=== PATIENT | female | born 1955 | race Caucasian/White ===

== ENCOUNTER → 2016-06-07 | Outpatient (CLI) | payer BC | LOC: MAMO 05-26 13:00 | DX: Z12.31 Encounter for screening mammogram for malignant neoplasm of breast (principal); Z98.890 Other specified postprocedural states | CPT/HCPCS: G0202 ==

== ENCOUNTER 2021-02-23 22:12 | Emergency (ER) | payer BC ==
[~2021-02-23] VITALS: Ht 152.4 cm; Wt 81.6 kg
[2021-02-23 23:27] LABS: HEMOGLOBIN 14.2 gm/dl (12.3-15.3); RED BLOOD COUNT 4.42 M/UL (4.00-5.10); WHITE BLOOD COUNT 14.8 K/UL (4.5-11.0)
== END 2021-02-24 05:13 | disposition home or self-care (01) ==
LOC: ER1 22:12
PROVIDERS: Physician Assistant Medical
DX: U07.1 COVID-19 (principal); J12.82 Pneumonia due to coronavirus disease 2019; Z23 Encounter for immunization; R74.02 Elevation of levels of lactic acid dehydrogenase [LDH]; R73.9 Hyperglycemia, unspecified; I51.9 Heart disease, unspecified
CPT/HCPCS: 36415; 36600; 71045; 80053; 81001; 82550; 82553; 82803; 83605; 83690; 83874; 84484; 85025; 86140; 87040; 93005; 96374; 99284; J0696; M0243; U0002

== ENCOUNTER 2021-02-26 16:14 | Inpatient (IN) | payer BC ==
[~2021-02-26] VITALS: Ht 152.4 cm; Wt 81.6 kg
[2021-02-26 16:50] LABS: HEMOGLOBIN 12.8 gm/dl (12.3-15.3)
[2021-02-26 17:00] LABS: RED BLOOD COUNT 3.97 M/UL (4.00-5.10); WHITE BLOOD COUNT 10.7 K/UL (4.5-11.0)
[2021-02-26] MEDS ORDERED: PROMETRIUM 200200 MG PO (19:28)
[2021-02-26] MEDS ORDERED: AMLODIPINE BESYL5 MG PO (19:30)
[2021-02-26] MEDS ORDERED: COREG 25MG TAB25 MG PO (19:31)
[2021-02-26] MEDS ORDERED: XARELTO20 MG PO (19:32)
[2021-02-26] MEDS ORDERED: LOSARTAN POTAS100 MG PO (19:32)
[2021-02-26] MEDS ORDERED: LASIX 40 MG TAB40 MG PO (19:34)
[2021-02-26] MEDS ORDERED: ASPIRIN EC81 MG PO (19:34)
[2021-02-26 20:10] LABS: HEMOGLOBIN 11.5 gm/dl (12.3-15.3); RED BLOOD COUNT 3.66 M/UL (4.00-5.10); WHITE BLOOD COUNT 11.9 K/UL (4.5-11.0)
[2021-02-27 03:30] LABS: HEMOGLOBIN 10.8 gm/dl (12.3-15.3); RED BLOOD COUNT 3.39 M/UL (4.00-5.10); WHITE BLOOD COUNT 10.6 K/UL (4.5-11.0)
[2021-02-28 06:32] LABS: HEMOGLOBIN 9.7 gm/dl (12.3-15.3); RED BLOOD COUNT 3.08 M/UL (4.00-5.10)
[2021-02-28 07:17] LABS: BUN/CREATININE RATIO 43 (0-10)
[2021-03-01 05:53] LABS: HEMOGLOBIN 9.4 gm/dl (12.3-15.3); RED BLOOD COUNT 2.99 M/UL (4.00-5.10)
[2021-03-01 06:05] LABS: WHITE BLOOD COUNT 7.6 K/UL (4.5-11.0)
[2021-03-01 08:20] LABS: BUN/CREATININE RATIO 43 (0-10)
[2021-03-01] MEDS ORDERED: DECADRON6 MG PO (17:32)
[2021-03-01] MEDS ORDERED: GLUCOPHAGE 500500 MG PO (17:32)
[2021-03-02 03:06] LABS: HEMOGLOBIN 9.9 gm/dl (12.3-15.3); RED BLOOD COUNT 3.18 M/UL (4.00-5.10); WHITE BLOOD COUNT 7.7 K/UL (4.5-11.0)
[2021-03-02 03:30] LABS: BUN/CREATININE RATIO 48 (0-10)
[2021-03-02] MEDS ORDERED: AMIODARONE HCL200 MG PO (08:42)
--- NOTE | 2021-03-02 11:34 | NUR ---
PATIENT OXYGEN SATURATION ON ROOM AIR IS 84%
== END 2021-03-02 16:20 | disposition home or self-care (01) | DRG 871 ==
LOC: ER1 16:14 → CCU 17:11 → CDU 17:11 → CCU 19:32 → PROG CARE 03-01 17:19
PROVIDERS: Family Medicine; Internal Medicine; ADMIT Internal Medicine
PROC: XW033E5 Introduction of Remdesivir Anti-infective into Peripheral Vein, Percutaneous Approach, New Technology Group 5 (ICD-10-PCS; 2021-02-26)
PROC: 3E043XZ Introduction of Vasopressor into Central Vein, Percutaneous Approach (ICD-10-PCS; 2021-02-26)
PROC: 02HV33Z Insertion of Infusion Device into Superior Vena Cava, Percutaneous Approach (ICD-10-PCS; 2021-02-26)
PROC: B548ZZA Ultrasonography of Superior Vena Cava, Guidance (ICD-10-PCS; 2021-02-26)
PROC: 8E0ZXY6 Isolation (ICD-10-PCS; principal; 2021-02-27)
PROC: B24BZZZ Ultrasonography of Heart with Aorta (ICD-10-PCS; 2021-02-27)
DX: A41.89 Other specified sepsis (principal); U07.1 COVID-19; J12.82 Pneumonia due to coronavirus disease 2019; J96.01 Acute respiratory failure with hypoxia; R65.21 Severe sepsis with septic shock; I48.92 Unspecified atrial flutter; I48.20 Chronic atrial fibrillation, unspecified; I50.22 Chronic systolic (congestive) heart failure; I11.0 Hypertensive heart disease with heart failure; E66.01 Morbid (severe) obesity due to excess calories; I08.1 Rheumatic disorders of both mitral and tricuspid valves; E11.65 Type 2 diabetes mellitus with hyperglycemia; I49.1 Atrial premature depolarization; I48.0 Paroxysmal atrial fibrillation; Z79.01 Long term (current) use of anticoagulants; Z79.82 Long term (current) use of aspirin; Z79.84 Long term (current) use of oral hypoglycemic drugs; Z82.49 Family history of ischemic heart disease and other diseases of the circulatory system; Z83.3 Family history of diabetes mellitus; Z68.35 Body mass index [BMI] 35.0-35.9, adult
CPT/HCPCS: ECHO; 36415; 36600; 51702; 71045; 80048; 80053; 80202; 80307; 81001; 82550; 82553; 82728; 82803; 82962; 83036; 83540; 83550; 83605; 83735; 83880; 84100; 84443; 84484; 85025; 85027; 85379; 85610; 85730; 86140; 87040; 93005; 93306; 99285; G0480; J0153; J0248; J1100; J1644; J1940; J2185; J2370; J3370; J7030; J7040; J7070; P9047; U0002

== ENCOUNTER → 2021-07-01 | Day surgery (SDC) | payer BC ==
[~2021-07-01] MED LIST: AMIODARONE HCL200 MG PO; AMLODIPINE BESYL5 MG PO; ASPIRIN EC81 MG PO; COREG 25MG TAB25 MG PO; DECADRON6 MG PO; GLUCOPHAGE 500500 MG PO; JARDIANCE25 MG PO; LASIX 40 MG TAB40 MG PO; LOSARTAN POTAS100 MG PO; NEXIUM40 MG PO; PROMETRIUM 200200 MG PO; XARELTO20 MG PO
== END | disposition home or self-care (01) ==
LOC: OR 06:22
DX: Z12.11 Encounter for screening for malignant neoplasm of colon (principal); K57.30 Diverticulosis of large intestine without perforation or abscess without bleeding; I11.0 Hypertensive heart disease with heart failure; I50.9 Heart failure, unspecified; I34.1 Nonrheumatic mitral (valve) prolapse; E78.5 Hyperlipidemia, unspecified; I48.91 Unspecified atrial fibrillation; E11.65 Type 2 diabetes mellitus with hyperglycemia; E55.9 Vitamin D deficiency, unspecified; Z79.82 Long term (current) use of aspirin; Z79.02 Long term (current) use of antithrombotics/antiplatelets; Z79.84 Long term (current) use of oral hypoglycemic drugs; Z79.899 Other long term (current) drug therapy; Z20.822 Contact with and (suspected) exposure to COVID-19
CPT/HCPCS: 82962; J2704; J7030